=== PATIENT | male | born 1970 | race Caucasian/White ===

== ENCOUNTER → 2019-04-02 | Outpatient (CLI) | payer BC ==
--- NOTE | 2019-04-02 13:29 | Diagnostic Imaging Report ---
Exam: Paranasal sinuses 3 views History: Sinusitis Comparison: None. Findings: No osseous destructive lesion or displaced fracture. Paranasal sinuses and mastoid air cells are well aerated without air-fluid levels. Impression: No radiographic evidence of acute sinusitis. Signed by: Dr. Reza Ferro M.D. on 04/02/2019 1:26 PM
== END ==
LOC: RAD 12:27
PROVIDERS: ATTEND Internal Medicine
DX: J32.9 Chronic sinusitis, unspecified (principal)
CPT/HCPCS: 70220

== ENCOUNTER → 2019-07-18 | Outpatient (CLI) | payer BC ==
--- NOTE | 2019-07-18 10:17 | Diagnostic Imaging Report ---
CT of the abdomen and pelvis, without contrast, 07/18/2019. History: Left kidney stone. Comparison: None available. Technique: Multidetector CT scanning of the abdomen and pelvis was performed from the level of the lung bases to the inferior pubic rami without intravenous or oral contrast. Coronal and sagittal multiplanar reformations were obtained. RADIATION DOSE: Total DLP: 747 mGy*cm Dose modulation, iterative reconstruction, and/or weight based adjustment of the mA/kV was utilized to reduce the radiation dose to as low as reasonably achievable. Discussion: Examination is limited without contrast. Lung bases: There is bibasilar dependent atelectasis. Abdomen: A 2.7 cm cyst is present in the lower pole of the left kidney measuring 6 Hounsfield units in density, with a thin curvilinear calcification along its inferior wall. There is no evidence of nephrolithiasis or hydronephrosis. The right kidney is unremarkable. The liver, gallbladder, biliary tree, spleen, pancreas, and adrenal glands are unremarkable. The abdominal aorta is within normal limits. There is no bowel dilatation. There is no evidence of adenopathy or free fluid. Pelvis: The bladder, prostate, and seminal vesicles are unremarkable. There is no evidence of free fluid or adenopathy. Bones and soft tissues: There is grade 1 spondylolisthesis of L4 and L5 with bilateral L4 spondylolysis and severe disc space narrowing with end plate sclerosis and osteophytosis at L4-L5. Mild degenerative changes are noted in the upper lumbar spine. IMPRESSION: 1. Minimally complex left renal cyst, Bosniak category 2, no follow-up recommended. No evidence of nephrolithiasis or hydronephrosis. 2. Lumbar spine findings as described above. Otherwise unremarkable noncontrast exam. Signed by: Elijah Osorio on 07/18/2019 10:14 AM
== END ==
LOC: CT 08:32
PROVIDERS: ATTEND Internal Medicine
DX: N20.0 Calculus of kidney (principal)
CPT/HCPCS: 74176

== ENCOUNTER → 2019-09-20 | Outpatient (CLI) | payer BC | LOC: SLEEP 19:34 | DX: G47.33 Obstructive sleep apnea (adult) (pediatric) (principal) | CPT/HCPCS: 95806 ==

== ENCOUNTER → 2019-11-08 | Outpatient (CLI) | payer BC | LOC: SLEEP 20:37 | PROVIDERS: ATTEND Internal Medicine | DX: G47.30 Sleep apnea, unspecified (principal) | CPT/HCPCS: 95811 ==